=== PATIENT | male | born 1945 | race Caucasian/White ===

== ENCOUNTER 2023-11-11 23:47 | Inpatient (IN) | payer MEDICARE ==
[~2023-11-11] VITALS: Ht 180.3 cm; Wt 107.4 kg
[2023-11-12] VITALS (14 sets, daily range): BP systolic 106–145; BP diastolic 62–81; PULSE 80–112; TEMP 97.2–99.2
[2023-11-12 00:25] LABS: COLLECTION METHOD CLEAN CATCH
[2023-11-12] MEDS ORDERED: Ondansetron 4 MG/2 ML VIAL IV ONE (00:30)
[2023-11-12] MEDS ORDERED: Morphine 4 MG/ML VIAL IV ONE ×2 (00:30→02:15)
[2023-11-12 00:34] LABS: URINE APPEARANCE CLEAR (CLEAR/HAZY); URINE BLOOD NEGATIVE (NEGATIVE); URINE COLOR YELLOW (YELLOW); URINE GLUCOSE NEGATIVE (NEGATIVE); URINE KETONE TRACE (NEGATIVE); URINE NITRATE NEGATIVE (NEGATIVE); URINE PROTEIN(semi-quant) TRACE (NEGATIVE)
[2023-11-12 00:38] LABS: ALBUMIN 3.8 g/dL (3.4-4.8); BILIRUBIN,TOTAL 0.5 mg/dL (0.2-1.2); C-REACTIVE PROTEIN 7.71 mg/dL (0.00-0.50); CALCIUM 9.9 mg/dL (8.4-10.2); CREATININE, serum 2.3 mg/dL (0.72-1.25); POTASSIUM 3.8 mEq/L (3.5-4.5); TOTAL PROTEIN 7.5 g/dl (6.2-8.1)
[2023-11-12 00:57] LABS: HEMOGLOBIN 11.1 g/dl (13.5-18.0); MEAN CELL VOLUME 94 fl (80.0-100.0); MEAN CORPUSCULAR HEMOGLOBIN 31 pg (27-31); MEAN CORPUSCULAR HGB CONC 33 g/dl (33.0-37.0); MEAN PLATELET VOLUME 9.6 fl (7.4-10.4); PLATELET COUNT 262 K/mm3 (130-400); RED BLOOD COUNT 3.59 M/mm3 (4.20-5.60); REDCELL DISTRIBUTION WIDTH-CV 12.5 % (11.5-14.5)
[2023-11-12 00:58] LABS: HEMATOCRIT 33.6 % (42.0-52.0)
[2023-11-12 01:00] LABS: EOSINOPHIL 1 % (0-4); LYMPHOCYTE 18 % (20.0-51.0); NEUTROPHILS 72 % (42.0-75.2); PLATELET ESTIMATE NORMAL (NORMAL)
[2023-11-12] MEDS ORDERED: Acetaminophen 325 MG TAB PO PRN (02:30)
[2023-11-12] MEDS ORDERED: Ondansetron 4 MG/2 ML VIAL IV PRN ×2 (02:30→11:00)
[2023-11-12] MEDS ORDERED: NS 1,000 ML IV SCH (02:30)
[2023-11-12] MEDS ORDERED: Albuterol/Ipratropium 3 MG-0.5 MG/3 ML Neb Soln IH PRN (02:45)
[2023-11-12] MEDS ORDERED: Morphine 4 MG/ML VIAL IV PRN (02:45)
[2023-11-12] MEDS ORDERED: VOLTAREN 75 DR75 MG PO (03:43)
[2023-11-12] MEDS ORDERED: BENICAR 20MG TA20 MG PO (03:45)
[2023-11-12] MEDS ORDERED: Glucagon 1 MG VIAL IM PRN (03:45)
[2023-11-12] MEDS ORDERED: Dextrose 50% Water 25 GM/50 ML SYRINGE IV PRN (03:45)
[2023-11-12] MEDS ORDERED: Dextrose (Glucose) 15 GM (4 x 3.75 GM) Chewable TABLET PACK PO PRN (03:45)
[2023-11-12] MEDS ORDERED: LIPITOR 80MG80 MG PO (03:46)
[2023-11-12] MEDS ORDERED: HCTZ 25MG TAB25 MG PO (03:46)
[2023-11-12] MEDS ORDERED: GLUCOPHAGE1000 MG PO (03:47)
[2023-11-12] MEDS ORDERED: ASPIRIN 81M81 MG/TA2 PO (03:48)
--- NOTE | 2023-11-12 04:37 | NUR ---
Patient arrived to the floor at 0320 from ED with oxygen at 2LPM via nasal cannula, A/Ox4, admission assessment and intake done, hospital policies orientated, reports minimal abdominal pain at 3/10, maintained on NPO, provided oral swabs, with IV infusing well on right forearm, questions answered, denies further needs, call light and personal items within reach, will continue to monitor.
[2023-11-12] MEDS ORDERED: Insulin Lispro (HumaLOG) SQ SCH (06:00)
[2023-11-12] MEDS ORDERED: Pantoprazole 40 MG in NS 10 ML IV SCH (09:00)
--- NOTE | 2023-11-12 10:32 | NUR ---
Pt resting in bed with pain 6/10 in RLQ of abdomen. PRN pain medication provided per emar. Pt remains NPO and on 2L NC at rest. Pt a/o x4 with steady gait around room. Family at bedside, no needs at this time, will continue to monitor.
[2023-11-12] MEDS ORDERED: HYDROmorphone 1 MG/1 ML SYRINGE [PACU/SDC ONLY] IV PRN (11:00)
[2023-11-12] MEDS ORDERED: Morphine 2 MG/1 ML VIAL [PACU/SDC ONLY] IV PRN (11:00)
[2023-11-12] MEDS ORDERED: fentaNYL 50 MCG/ML 1 ML SYRINGE/VIAL [PACU/SDC ONLY] IV PRN (11:00)
[2023-11-12] MEDS ORDERED: droPERidol 2.5 MG/ML 2 ML VIAL IV PRN (11:00)
[2023-11-12] MEDS ORDERED: hydrALAZINE 20 MG/ML 1 ML VIAL IV PRN (11:00)
[2023-11-12] MEDS ORDERED: LR 1,000 ML IV SCH (11:00)
[2023-11-12] MEDS ORDERED: Indocyanine Green 12.5 MG in Water For Injection,Sterile 2.5 ML IV ONE (11:45)
[2023-11-12] MEDS ORDERED: Topical Skin Adhesive 1 EACH (1 ML) TOP ONE ×2 (12:43→15:16)
[2023-11-12] MEDS ORDERED: Rocuronium 50 MG/5 ML Multi-Dose VIAL ONE ×2 (13:50→14:56)
[2023-11-12] MEDS ORDERED: fentaNYL 50 MCG/ML 2 ML VIAL ONE ×3 (13:50→15:13)
[2023-11-12] MEDS ORDERED: Lidocaine PF 2% (20 MG/ML) 5 ML VIAL ONE (13:50)
[2023-11-12] MEDS ORDERED: Ondansetron 4 MG/2 ML VIAL ONE (13:51)
[2023-11-12] MEDS ORDERED: dexAMETHasone 10 MG/ML VIAL ONE (13:51)
[2023-11-12] MEDS ORDERED: ePHEDrine 50 MG/ML VIAL ONE (14:02)
[2023-11-12] MEDS ORDERED: NS 100 ML IV ONE (14:12)
[2023-11-12] MEDS ORDERED: Phenylephrine 10 MG/ML VIAL ONE (14:12)
[2023-11-12] MEDS ORDERED: Esmolol 10 MG/ML 10 ML VIAL IV ONE (14:18)
--- NOTE | 2023-11-12 15:00 | NUR ---
ERASMO met with patient's and son to complete initial assessment for discharge planning. Patient in surgery at time of visit. Patient and live in [place] in a ground level duplex. They have just moved from [facility] about 6 weeks ago. Patient is normally independent and uses no DME. He sees Dr. Carr as his PCP and uses [facility]. Patient has completed a DPOA naming his Jose Luis ([phone]) and his sons as agents. Patient is covered by Medicare and [employer] supplemental insurances. Patient is planning to discharge to home later today after surgery. Discharge plan: Home with no needs
--- NOTE | 2023-11-12 15:45 | NUR ---
Pt up to the floor from PACU at this time. Pt a/o x4, on 4l NC, vitals stable, tolerating ice chips well, 5 lap sites to skin glue open to air, at bedside. Call light within reach, will continue to monitor.
--- NOTE | 2023-11-12 19:45 | NUR ---
PT POSTOP VITALS COMPLETE. PT ON OXYGEN AT 2L/NC. HAS IVF INFUSING TO RFA WITHOUT PROBLEM. HAS EATEN AND VOIDED SINCE SURGERY. HAS ABD ROBOTIC SITES X5, GLUED AND DRY. NO FLATUS YET. DENIES NEED FOR PAIN MEDS AT THIS TIME.
--- NOTE | 2023-11-12 21:30 | NUR ---
NEW ORDER FOR [facility] FOR PAIN FROM DENZEL GUPTA.
--- NOTE | 2023-11-12 21:39 | NUR ---
PT REPORTS ABD PAIN 5/10, MEDICATED WITH NORCO 1 TAB PO NOW.
[2023-11-13 00:30] VITALS: BP_SYST 134
[2023-11-13 03:51] VITALS: BP 103/66; PULSE 84; TEMP 98.4
[2023-11-13 04:05] VITALS: BP_SYST 103
--- NOTE | 2023-11-13 06:00 | NUR ---
PT VOIDING WITHOUT PROBLEM. GOOD ORAL INTAKE. IVF CONTINUE TO RFA WITHOUT PROBLEM.
[2023-11-13 06:07] LABS: BASO % 0.1 % (0.0-2.0); GRAN # 13.6 K/mm3 (1.4-6.5); GRAN % 85.7 % (42.2-75.2); LYMPH # 1.2 K/mm3 (1.2-3.4); LYMPH % 7.4 % (20.0-51.0); MEAN CELL VOLUME 91 fl (80.0-100.0); MEAN CORPUSCULAR HGB CONC 33 g/dl (33.0-37.0); MEAN PLATELET VOLUME 10.1 fl (7.4-10.4); MONO % 6.4 % (1.7-9.3); PLATELET COUNT 261 K/mm3 (130-400); RED BLOOD COUNT 3.17 M/mm3 (4.20-5.60); REDCELL DISTRIBUTION WIDTH-CV 12.4 % (11.5-14.5)
[2023-11-13 06:12] LABS: HEMATOCRIT 28.8 % (42.0-52.0); HEMOGLOBIN 9.6 g/dl (13.5-18.0); MEAN CORPUSCULAR HEMOGLOBIN 30 pg (27-31)
[2023-11-13 07:06] LABS: ALBUMIN 3.1 g/dL (3.4-4.8); BILIRUBIN,TOTAL 0.9 mg/dL (0.2-1.2); CALCIUM 8.7 mg/dL (8.4-10.2); CREATININE, serum 1.46 mg/dL (0.72-1.25); POTASSIUM 4.9 mEq/L (3.5-4.5); TOTAL PROTEIN 6.5 g/dl (6.2-8.1)
[2023-11-13 07:33] VITALS: BP 106/69; PULSE 84; TEMP 98.4
[2023-11-13] MEDS ORDERED: Amoxicillin/Clavulanate K+ 875/125 MG TAB PO SCH (08:00)
--- NOTE | 2023-11-13 08:20 | NUR ---
pt a&ox4 sitting up in recliner finished up with breakfast. vss. pt reports minimal pain with movement. denies nausea. x5 lap sites are cdi. pt reports passing gas, no BM yet. fluids infusing into right forearm IV. pt denies needs at this time. call light in reach.
[2023-11-13 08:32] VITALS: BP_SYST 106
[2023-11-13] MEDS ORDERED: AMOXICILLIN 8751 TAB PO (09:24)
--- NOTE | 2023-11-13 10:14 | NUR ---
INT discontinued. discharge instructions given to pt, all questions answered.
--- NOTE | 2023-11-13 10:17 | NUR ---
pt escorted by wheelchair to personal vehicle.
--- NOTE | 2023-11-13 10:35 | NUR ---
Initial visit; Patient thanked [employer]visor for looking in on him and visiting about his family being the reason he recently moved to [place] and spoke of liking the community and being very pleased with his care here at [facility]. [employer] Supervisor will keep him in her prayers for healing.
== END 2023-11-13 10:18 | disposition home or self-care (01) | DRG 418 ==
LOC: COL.ER 23:47 → SURG 11-12 03:12
PROVIDERS: Nurse Practitioner; Physician Assistant; Surgery; ADMIT Internal Medicine
PROC: 8E0W4CZ Robotic Assisted Procedure of Trunk Region, Percutaneous Endoscopic Approach (ICD-10-PCS; 2023-11-12)
PROC: 0FT44ZZ Resection of Gallbladder, Percutaneous Endoscopic Approach (ICD-10-PCS; principal; 2023-11-12 14:00)
DX: K80.00 Calculus of gallbladder with acute cholecystitis without obstruction (principal); C95.90 Leukemia, unspecified not having achieved remission; N17.9 Acute kidney failure, unspecified; E78.5 Hyperlipidemia, unspecified; M19.90 Unspecified osteoarthritis, unspecified site; I12.9 Hypertensive chronic kidney disease with stage 1 through stage 4 chronic kidney disease, or unspecified chronic kidney disease; E11.22 Type 2 diabetes mellitus with diabetic chronic kidney disease; N18.9 Chronic kidney disease, unspecified; I44.0 Atrioventricular block, first degree; G89.29 Other chronic pain; Z23 Encounter for immunization
CPT/HCPCS: C9113; J1100; J1805; J1815; J2270; J2371; J2405; J2543; J2704; J3010; J7030